=== PATIENT | female | born 1980 | race Hispanic/Latino ===

== ENCOUNTER 2021-07-26 13:17 | Outpatient (CLI) | payer MEDICAID | END 2021-07-26 13:18 | disposition home or self-care (01) | LOC: CSHULT 13:17 | PROVIDERS: ATTEND Family Medicine | DX: O09.522 Supervision of elderly multigravida, second trimester (principal); Z3A.19 19 weeks gestation of pregnancy | CPT/HCPCS: 76805 ==

== ENCOUNTER 2021-07-28 09:45 | Emergency (ER) | payer MEDICAID ==
[2021-07-28 10:48] LABS: #Monocytes 0.9 10x3/uL (0.0-1.1); #Neutrophils 11.6 10x3/uL (1.5-8.4); %Basophils 0.3 % (0.0-2.0); %Eosinophils 0.3 % (0.0-6.0); %Lymphocytes 11.2 % (18.0-47.0); %Monocytes 5.8 % (0.0-10.0); %Neutrophils 79.3 % (40.0-75.0); Hemoglobin 12.3 g/dL (12.0-15.5); Mean Corpuscular HGB CONC 34.6 g/dL (32.0-36.0); Mean Corpuscular Hemoglobin 31.3 pg (27.0-33.0); Mean Corpuscular Volume 90.6 fl (81.6-98.3); Platelet Count 281 10x3/uL (150-450); RBC Distribution Width 13.9 % (11.5-14.5); Red Blood Cell (RBC) Count 3.93 10x6/uL (3.90-5.03); White Blood Cell (WBC) Count 14.6 10x3/uL (3.5-10.5)
[2021-07-28 11:02] LABS: ALT (SGPT) 10 U/L (8-55); AST (SGOT) 16 U/L (5-34); Albumin 3.6 g/dL (3.5-5.0); Alkaline Phosphatase 54 U/L (40-110); Anion Gap 14 mmol/L (10-20); BUN (Urea Nitrogen) 10 mg/dL (7.0-18.7); Bilirubin, Total 0.5 mg/dL (0.2-1.2); Calc. Creatinine Clearance 0 mL/min (70-130); Calcium 9.2 mg/dL (7.8-10.44); Carbon Dioxide 19 mmol/L (22-29); Chloride 103 mmol/L (98-107); Globulin 4.1 g/dL (2.4-3.5); Glucose 95 mg/dL (70-105); Lipase 45 U/L (8-78); Potassium 3.3 mmol/L (3.5-5.1); Protein, Total 7.7 g/dL (6.0-8.3); Sodium 133 mmol/L (136-145)
[2021-07-28 13:16] LABS: Fetal Membranes Rupture No Membranes Rupture (No Rupture)
[2021-07-28] MEDS ORDERED: Azithromycin 250 MG TAB ONE (15:54)
[2021-07-28] MEDS ORDERED: cefTRIAXone\\ROCEPHIN 1 GM VIAL ONE (15:54)
[2021-07-28 15:57] LABS: Bilirubin Neg (Negative); Blood, Urine 25 (Negative); Clarity Slightly Cloudy (Clear); Glucose, Urine (Dipstick) Normal (Negative); Ketone, Urine 150 mg/dL (Negative); Leukocyte 500 (Negative); Nitrite Positive (Negative); Protein, Urine (Dipstick) Negative (Neg-Trace); Specific Gravity, Urine 1.015 (1.002-1.036); Urobilinogen Normal mg/dL (Less than 2)
[2021-07-28 16:06] LABS: Bacteria/HPF 3+ HPF (None Seen); RBC/HPF 0-3 HPF (0-3); Squamous Epithelial 0-3 HPF (0-3)
[2021-07-28 16:07] LABS: Mucous/LPF Few LPF (<2+)
[2021-07-28] MEDS ORDERED: Fluconazole 100 MG TAB PO SCH (17:00)
[2021-07-30 03:23] LABS: Chlamydia by PCR Not Detected (NotDetected); GC by PCR Not Detected (NotDetected)
== END 2021-07-28 17:45 | disposition home or self-care (01) ==
LOC: CSHERS 09:45
DX: O98.812 Other maternal infectious and parasitic diseases complicating pregnancy, second trimester (principal); B37.3 Candidiasis of vulva and vagina; O23.42 Unspecified infection of urinary tract in pregnancy, second trimester; N39.0 Urinary tract infection, site not specified; O23.592 Infection of other part of genital tract in pregnancy, second trimester; B96.89 Other specified bacterial agents as the cause of diseases classified elsewhere; O26.892 Other specified pregnancy related conditions, second trimester; R10.2 Pelvic and perineal pain; Z3A.19 19 weeks gestation of pregnancy
CPT/HCPCS: 36415; 76856; 80053; 81003; 81015; 83690; 84112; 85025; 86900; 86901; 87077; 87086; 87186; 87480; 87491; 87510; 87591; 87660; 96365; J0696

== ENCOUNTER 2021-08-15 09:45 | Day surgery (SDC) | payer MEDICAID, OTHER, SELFPAY ==
[2021-08-15 10:24] VITALS: BMI 31.3
[2021-08-15] MEDS ORDERED: hydrALAZINE 20 MG/ML VIAL SLOW IVP PRN (11:22)
[2021-08-15 12:07] LABS: Bilirubin 1+ (Negative); Blood, Urine 25 (Negative); Clarity Slightly Cloudy (Clear); Glucose, Urine (Dipstick) Normal (Negative); Ketone, Urine 150 mg/dL (Negative); Leukocyte 100 (Negative); Nitrite Positive (Negative); Protein, Urine (Dipstick) 100 mg/dl (Neg-Trace); Specific Gravity, Urine 1.025 (1.002-1.036)
[2021-08-15 12:15] LABS: Bacteria/HPF 2+ HPF (None Seen); Mucous/LPF 3+ LPF (<2+); Transitional Epithelial 0-3 HPF (None Seen)
== END 2021-08-15 13:00 | disposition home or self-care (01) ==
LOC: CSHLD/OP 09:45
PROVIDERS: ATTEND Family Medicine
DX: O98.812 Other maternal infectious and parasitic diseases complicating pregnancy, second trimester (principal); B37.3 Candidiasis of vulva and vagina; O23.42 Unspecified infection of urinary tract in pregnancy, second trimester; N39.0 Urinary tract infection, site not specified; B96.20 Unspecified Escherichia coli [E. coli] as the cause of diseases classified elsewhere; O34.219 Maternal care for unspecified type scar from previous cesarean delivery; O09.522 Supervision of elderly multigravida, second trimester; Z3A.21 21 weeks gestation of pregnancy
CPT/HCPCS: 81001; 87086; 87480; 87510; 87660; 99285

== ENCOUNTER 2021-11-09 15:54 | Day surgery (SDC) | payer MEDICAID, OTHER | END 2021-11-09 17:58 | disposition home or self-care (01) | LOC: CSHLD/OP 15:54 | PROVIDERS: ATTEND Family Medicine | DX: Z01.89 Encounter for other specified special examinations (principal); O09.529 Supervision of elderly multigravida, unspecified trimester; O24.419 Gestational diabetes mellitus in pregnancy, unspecified control | CPT/HCPCS: 36416; 76819 ==

== ENCOUNTER 2021-11-10 05:34 | Inpatient (IN) | payer MEDICAID, OTHER ==
[2021-11-10 05:56] VITALS: BMI 32.1
[2021-11-10 06:15] LABS: Fetal Membranes Rupture RUPTURE DETECTED (No Rupture)
[2021-11-10] MEDS ORDERED: Promethazine HCl 25 MG/ML VIAL IM PRN ×3 (06:38→11:00)
[2021-11-10] MEDS ORDERED: hydrALAZINE 20 MG/ML VIAL SLOW IVP PRN ×2 (06:38→11:00)
[2021-11-10] MEDS ORDERED: Butorphanol Tartrate 1 MG/ML VIAL SLOW IVP PRN (06:38)
[2021-11-10] MEDS ORDERED: Bicitra 30 ML UDCUP PO PRN (06:38)
[2021-11-10] MEDS ORDERED: Ondansetron PF 4 MG/2 ML Vial IVP PRN ×3 (06:38→11:00)
[2021-11-10] MEDS ORDERED: Famotidine/PF 20 mg/2ml Vial SLOW IVP PRN (06:38)
[2021-11-10] MEDS ORDERED: Lidocaine 1% (PF) 30 ML VIAL SC PRN (06:42)
[2021-11-10] MEDS ORDERED: Lactated Ringer's 1,000 ML IV SCH ×2 (06:45)
[2021-11-10] MEDS ORDERED: NS w/ Oxytocin 30 units 500 ML IV SCH ×2 (06:45→11:00)
[2021-11-10] MEDS ORDERED: Azithromycin 500 MG in Sodium Chloride 0.9% 250 ML 250 ML IVPB SCH (06:45)
[2021-11-10] MEDS ORDERED: ceFAZolin 2 GM/Dextrose 50 ML 2 GM in Premix Bag 1 BAG IVPB SCH (06:45)
[2021-11-10] MEDS ORDERED: Penicillin G Potassium 5 MILL.UNITS in Sodium Chloride 0.9% 100 ML IVPB SCH (06:45)
[2021-11-10] MEDS ORDERED: Betamet Acet/Betamet Na Ph 30 MG/5 ML VIAL ONE (06:55)
[2021-11-10] MEDS ORDERED: Betamet Acet/Betamet Na Ph 30 MG/5 ML VIAL IM SCH (07:00)
[2021-11-10 07:21] LABS: Hemoglobin 11.9 g/dL (12.0-15.5); Mean Corpuscular HGB CONC 33.7 g/dL (32.0-36.0); Mean Corpuscular Hemoglobin 30.6 pg (27.0-33.0); Mean Corpuscular Volume 90.7 fl (81.6-98.3); Mean Platelet Volume 11.3 fl (7.4-10.4); Platelet Count 247 10x3/uL (150-450); RBC Distribution Width 14.8 % (11.5-14.5); Red Blood Cell (RBC) Count 3.89 10x6/uL (3.90-5.03); White Blood Cell (WBC) Count 10.8 10x3/uL (3.5-10.5)
[2021-11-10] MEDS ORDERED: Oxytocin 10 UNITS/ML VIAL ONE ×2 (07:28→09:06)
[2021-11-10] MEDS ORDERED: Morphine PF 10 MG/10 ML VIAL ONE (07:29)
[2021-11-10] MEDS ORDERED: Ondansetron PF 4 MG/2 ML Vial ONE (07:29)
[2021-11-10 07:47] LABS: Hep B Surf Ag Non-Reactive S/CO (NonReactive)
[2021-11-10 07:49] LABS: Syphilis Antibody Nonreactive (Nonreactive); Syphilis Antibody Index 0.57 S/CO (<1.00 Non-Reactive)
[2021-11-10] MEDS ORDERED: ePHEDrine Sulfate 50 MG/10 ML VIAL ONE (07:55)
[2021-11-10 08:19] LABS: SARS-CoV-2 NAA Rapid Test Not Detected (NotDetected)
[2021-11-10] MEDS ORDERED: PHENYLEPHRINE-NS 100 MCG/ML 10 ML SYRINGE ONE (08:26)
[2021-11-10] MEDS ORDERED: diphenhydrAMINE 50 MG/ML VIAL IVP PRN (08:39)
[2021-11-10] MEDS ORDERED: Ondansetron HCl/PF 4 MG/2 ML Vial IVP PRN (08:39)
[2021-11-10] MEDS ORDERED: Promethazine HCl 25 MG SUPP PR PRN (08:39)
[2021-11-10] MEDS ORDERED: Ketorolac Tromethamine 30 MG/ML VIAL IVP PRN (08:39)
[2021-11-10] MEDS ORDERED: Naloxone HCl 0.4 mg/ml Vial IV PRN (08:39)
[2021-11-10] MEDS ORDERED: Naloxone HCl 0.4 mg/ml Vial IVP PRN ×2 (08:39)
[2021-11-10] MEDS ORDERED: L&D-Morphine 4 MG/ML VIAL SLOW IVP PRN (08:39)
[2021-11-10] MEDS ORDERED: Meperidine HCl/PF 25 MG/ML VIAL SLOW IVP PRN (08:39)
[2021-11-10] MEDS ORDERED: Hydrocerin (Eucerin) Cream 120 gm Jar TOP PRN (08:39)
[2021-11-10] MEDS ORDERED: Fentanyl 100 MCG/2 ML VIAL SLOW IVP PRN (08:39)
[2021-11-10 08:41] LABS: HBSAg Index 0.19 S/CO (0-0.99)
[2021-11-10] MEDS ORDERED: Communication Order-Pharmacy FS SCH (08:45)
[2021-11-10] MEDS ORDERED: Ketorolac Tromethamine 30 MG/ML VIAL IVP SCH (08:45)
[2021-11-10] MEDS ORDERED: diphenhydrAMINE 25 MG CAP PO PRN (11:00)
[2021-11-10] MEDS ORDERED: Penicillin G 2.5 MILL.units 2.5 MILL.UNITS in Premix Bag 1 BAG IVPB SCH (11:00)
[2021-11-10] MEDS ORDERED: Lanolin Ointment 7 GM TUBE TOP PRN (11:00)
[2021-11-10] MEDS ORDERED: Boostrix 0.5 ML (Tdap) VIAL IM ONE (11:00)
[2021-11-10] MEDS ORDERED: HYDROcodone/Acetaminophen 5/325 mg Tablet PO PRN ×2 (11:00)
[2021-11-10] MEDS: Ketorolac Tromethamine 30 MG/ML VIAL IVP SCH (13:40)
[2021-11-10] MEDS: Ferrous Sulfate 325 MG TAB PO SCH (21:00)
[2021-11-10] MEDS: Docusate 100 MG CAP PO SCH (21:00)
[2021-11-11] MEDS: Ketorolac Tromethamine 30 MG/ML VIAL IVP SCH ×2 (03:05→07:44)
[2021-11-11 04:39] LABS: Hemoglobin 9.3 g/dL (12.0-15.5); Mean Corpuscular HGB CONC 33.6 g/dL (32.0-36.0); Mean Corpuscular Hemoglobin 30.9 pg (27.0-33.0); Mean Platelet Volume 10.6 fl (7.4-10.4); Platelet Count 193 10x3/uL (150-450); RBC Distribution Width 14.9 % (11.5-14.5); Red Blood Cell (RBC) Count 3.01 10x6/uL (3.90-5.03); White Blood Cell (WBC) Count 10.8 10x3/uL (3.5-10.5)
[2021-11-11] MEDS: Ferrous Sulfate 325 MG TAB PO SCH ×2 (08:08→21:38)
[2021-11-11] MEDS: Prenatal Vitamin 1 TAB PO SCH (08:08)
[2021-11-11] MEDS: Docusate 100 MG CAP PO SCH ×2 (08:08→21:37)
[2021-11-11] MEDS: Simethicone Chewable 80 MG TAB PO PRN ×2 (08:18→14:18)
[2021-11-11] MEDS ORDERED: Acetaminophen 325 MG TAB PO PRN (13:42)
[2021-11-11] MEDS: Ibuprofen 800 MG TAB PO SCH ×2 (14:16→21:38)
[2021-11-12] MEDS: Ibuprofen 800 MG TAB PO SCH ×3 (06:01→22:06)
[2021-11-12] MEDS: Ferrous Sulfate 325 MG TAB PO SCH ×2 (08:33→22:06)
[2021-11-12] MEDS: Prenatal Vitamin 1 TAB PO SCH (08:33)
[2021-11-12] MEDS: Docusate 100 MG CAP PO SCH ×2 (08:33→22:06)
[2021-11-13] MEDS: Ibuprofen 800 MG TAB PO SCH ×2 (04:58→13:24)
[2021-11-13 08:44] VITALS: BP 105/56; TEMP 97.9
[2021-11-13] MEDS: Prenatal Vitamin 1 TAB PO SCH (13:24)
[2021-11-13] MEDS: Docusate 100 MG CAP PO SCH (13:25)
[2021-11-13] MEDS: Ferrous Sulfate 325 MG TAB PO SCH (13:25)
== END 2021-11-13 14:30 | disposition home or self-care (01) | DRG 786 ==
LOC: CSHLD/OP 05:34 → CSHLD 06:35 → CSHPP 10:43
PROVIDERS: ADMIT Family Medicine; ATTEND Family Medicine
PROC: 10D00Z1 Extraction of Products of Conception, Low, Open Approach (ICD-10-PCS; principal; 2021-11-10)
PROC: 0DNU0ZZ Release Omentum, Open Approach (ICD-10-PCS; 2021-11-10)
PROC: 0UN90ZZ Release Uterus, Open Approach (ICD-10-PCS; 2021-11-10)
DX: O42.013 Preterm premature rupture of membranes, onset of labor within 24 hours of rupture, third trimester (principal); O60.14X0 Preterm labor third trimester with preterm delivery third trimester, not applicable or unspecified; Z3A.34 34 weeks gestation of pregnancy; Z37.0 Single live birth; O34.211 Maternal care for low transverse scar from previous cesarean delivery; O32.1XX0 Maternal care for breech presentation, not applicable or unspecified; O24.420 Gestational diabetes mellitus in childbirth, diet controlled; N73.6 Female pelvic peritoneal adhesions (postinfective); O99.892 Other specified diseases and conditions complicating childbirth; O34.13 Maternal care for benign tumor of corpus uteri, third trimester; D25.9 Leiomyoma of uterus, unspecified
CPT/HCPCS: 36415; 51702; 84112; 85027; 86780; 86850; 86900; 86901; 87340; 88307; 99285; J0456; J0690; J1885; J2274; J2405; J2550; J2590; J7050; J7120; U0002